=== PATIENT | male | born 1985 | race Hispanic/Latino ===

== ENCOUNTER 2022-04-09 20:51 | Emergency (ER) | payer BC, OTHER ==
[2022-04-09] MEDS ORDERED: Sodium Chloride 0.9% 1,000 ML ONE ×2 (21:22→22:42)
[2022-04-09 21:55] LABS: Acetaminophen Less than 10.0 mcg/mL (10.0-30.0); Alcohol 94 mg/dL (Less than 10); Salicylate Less than 8.0 mg/dL (15.0-30.0)
[2022-04-09 21:58] LABS: ALT (SGPT) 30 U/L (8-55); AST (SGOT) 20 U/L (5-34); Albumin 4.4 g/dL (3.5-5.0); Alkaline Phosphatase 90 U/L (40-110); Anion Gap 15 mmol/L (10-20); BUN (Urea Nitrogen) 5 mg/dL (8.9-20.6); Bilirubin, Total 0.5 mg/dL (0.2-1.2); Calc. Creatinine Clearance 0 mL/min (70-130); Calcium 8.5 mg/dL (7.8-10.44); Carbon Dioxide 23 mmol/L (22-29); Chloride 108 mmol/L (98-107); Estimated GFR 116; Globulin 2.6 g/dL (2.4-3.5); Glucose 108 mg/dL (70-105); Hemoglobin 14.9 g/dL (14.0-18.0); Lipase 50 U/L (8-78); Lymphocytes 42 % (21-51); MDiff Complete? YES; Mean Corpuscular HGB CONC 34.4 g/dL (32.0-36.0); Mean Corpuscular Hemoglobin 30.3 pg (27.0-31.0); Mean Corpuscular Volume 88.2 fL (78.0-98.0); Mean Platelet Volume 11.4 fL (7.4-10.4); Monocytes 8 % (0-10); Neutrophil 43 % (42-75); Platelet Count 148 thou/uL (130-400); Potassium 3.3 mmol/L (3.5-5.1); RBC Distribution Width 11.1 % (11.5-14.5); RBC Morphology Normal; Reactive Lymphocytes 5 % (0-10); Red Blood Cell (RBC) Count 4.92 mill/uL (4.70-6.10); Sodium 143 mmol/L (136-145); White Blood Cell (WBC) Count 3.4 thou/uL (4.8-10.8)
[2022-04-09 23:03] LABS: Amphetamine Not Detected (NotDetected); Barbiturates Screen Not Detected (NotDetected); Benzodiazepine Screen Not Detected (NotDetected); Cocaine Metabolite Screen Not Detected (NotDetected); Medtox Control Line Valid? VALID (VALID); Methadone Not Detected (NotDetected); Methamphetamine Not Detected (NotDetected); Opiate Screen Not Detected (NotDetected); Oxycodone Screen Not Detected (NotDetected); Phencyclidine (PCP) Not Detected (NotDetected); THC/Cannabinoid Screen Not Detected (NotDetected); Tricyclic Screen Not Detected (NotDetected)
[2022-04-09] MEDS ORDERED: Potassium Chloride 20 MEQ TAB ONE (23:48)
== END 2022-04-09 23:55 | disposition home or self-care (01) ==
LOC: MADERS 20:51
DX: F10.129 Alcohol abuse with intoxication, unspecified (principal); R11.2 Nausea with vomiting, unspecified; E87.6 Hypokalemia; R74.02 Elevation of levels of lactic acid dehydrogenase [LDH]; R61 Generalized hyperhidrosis; Y90.4 Blood alcohol level of 80-99 mg/100 ml
CPT/HCPCS: 71045; 80053; 80306; 80307; 83605; 83690; 83735; 83880; 84484; 85025; 93005; 96360; 96361; J7050